=== PATIENT | male | born 1935 | race Caucasian/White ===

== ENCOUNTER 2016-12-02 17:59 | Inpatient (IN) | payer MEDICARE, OTHER ==
[~2016-12-02] VITALS: Ht 177.8 cm; Wt 101.0 kg
--- NOTE | ~2016-12-02 | ECH ---
Transthoracic Echocardiography Report (TTE) Demographics Patient Name VICTOR MANUEL KAISER Date of Study 12/03/2016 Patient Number [id number] Visit Number [id number] Date of 1935 Room Number 306 Accession Number [id number] Gender Male Age 81 year(s) Referring Wm Adorno Developer Support Engineer Tatiana Peralta [facility] Physician Physician Interpreting [address] Light Repairer Helper Physician MD Supervising Ordering Physician Wm Adorno MD, MD/P Nurse Stress Back Hoe Machine Operator Conclusions Summary Technically adequate exam. The estimated left ventricular ejection fraction is 65%. Mild assymetric septal left ventricular hypertrophy. Diastolic assessment reveals Grade I diastolic dysfunction. The interatrial septum appears aneurysmal. Informed consent was obtained, bubble study was done, there is no evidence for a PFO or ASD. There is mild aortic regurgitation by color Doppler. Trivial tricuspid regurgitation by color Doppler. There is mild pulmonary hypertension. The pulmonary pressure (RVSP) is 35 mmHg. Procedure Type of Study TTE procedure:Echo Complete SF. Procedure Date Date: 12/03/2016 Start: 02:01 PM Technical Quality: Adequate visualization Indications:CVA and Hypertension. Appropriate Use Criteria: 9 Height: 70 inches Weight: 198 pounds BSA: 2.08 m Rhythm: Irregular HR: 77 bpm BP: 114/67 mmHg M-Mode/2D Measurements LV Diastolic Dimension: 4.52 cm LV Systolic Dimension: 3.37 cm LV Septum Diastolic: 1.15 cm LV PW Diastolic: 0.8 cm AO Root Dimension: 3.35 cm Cardiac Output: 8.7 l/min LA Dimension: 3.7 cm Cardiac Index: 4.18 l/min*m RV Diastolic Dimension: 3.14 cm LA volume index: 28 ml/m LVOT: 2.23 cm LVOT VTI: 28.96 cm RV Base: 2.6 cm LV Stroke volume: 113.05 ml RV Mid: 1.8 cm LV Stroke volume index: 54.35 ml/m TAPSE: 2.5 cm TDI-S': 15 cm/s Doppler Measurements AV Peak Velocity: 1.6 m/s MV Peak E-Wave: 0.65 m/s AV Peak Gradient: 10.24 mmHg MV Peak A-Wave: 0.73 m/s AV Mean Gradient: 5.6 mmHg MV E/A Ratio: 0.9 LVOT Peak Velocity: 1.44 m/s MV P1/2t: 93.1 msec AV Area (Continuity):4.02 cm AV P1/2t: 586.6 msec MV Deceleration Time: 294.2 msec TR Velocity:2.85 m/s MV Area (PHT): 2.36 cm TR Gradient:32.49 mmHg PV Peak Velocity: 0.96 m/s Estimated RAP:3 mmHg PV Peak Gradient: 3.67 mmHg Estimated RVSP: 35 mmHg Estimated PASP: 35.49 mmHg E' Septal Velocity: 0.06 m/s A' Septal Velocity: 0.12 m/s E' Lateral Velocity: 0.1 m/s A' Lateral Velocity: 0.14 m/s RA Area: 16.57 cm Findings Left Ventricle The left ventricle is normal in size . Mild assymetric septal left ventricular hypertrophy. Diastolic assessment reveals Grade I diastolic dysfunction. Right Ventricle Normal right ventricle structure and function. Left Atrium Normal left atrial size. The interatrial septum appears aneurysmal. Informed consent was obtained, bubble study was done, there is no evidence for a PFO or ASD. Right Atrium Normal right atrial size. Mitral Valve Normal mitral valve structure and function. Trivial mitral regurgitation by color Doppler. Aortic Valve Normal aortic valve structure and function. There is mild aortic regurgitation by color Doppler. Tricuspid Valve Normal tricuspid valve structure and function. Trivial tricuspid regurgitation by color Doppler. There is mild pulmonary hypertension. The pulmonary pressure (RVSP) is 35 mmHg. Pulmonic Valve Normal pulmonic valve structure and function. Mild pulmonic valve regurgitation by color Doppler. Pericardial Effusion No evidence of pericardial effusion. Miscellaneous Visualized portions of the aortic root and ascending aorta appear normal in size. Pleural Effusion No evidence of pleural effusion. Contractility Score LV regional wall motion:(0-Non visualized 1-Normal 2-Hypokinesis 3-Akinesis 4-Dyskinesis 5-Aneurysm) Signature
--- NOTE | ~2016-12-02 | WND ---
ADMIT: 12/02/2016 RM/LOC: 306 [facility] MR#: [id number] [address] [address] VICTOR MANUEL KAISER [address] [place] [address] [facility] SEX: M AGE: 81 : 1935 DATE OF VISIT: 12/03/2016 TIME IN: 1325 hours. TIME OUT: 1340 hours. REASON FOR VISIT: Evaluation and treatment of skin concerns. Request for Wound Care from Dr. Burk. HISTORY OF PRESENT ILLNESS: This is an 81-year-old male, admitted to [facility] on 12/02/2016. According to past records, he was actually seen in the emergency room on 11/29/2016 with a diagnosis of paraesthesia of the foot. At that time, the CT of the head was negative for any acute abnormalities. He returned to the emergency room on 12/02/2016 after he was found on the floor with right-sided weakness and unable to speak. A repeat CT showed a large ischemic stroke in the left temporoparietal region. EKG showed nonspecific ST changes. Chest x-ray questionable for left lower lobe infiltrate. Therefore, he was admitted for further evaluation and care. He was diagnosed with cerebrovascular accident of unknown duration and possible pneumonia. Upon admission, it was noted to his skin that he had several abrasions. Wound Care was requested to evaluate and treat. PAST MEDICAL HISTORY: According to old records, hypertension. Paresthesia of right leg. ALLERGIES: Penicillin. CURRENT MEDICATIONS: Per the MAR. Please see the MAR for further details. 1. Aspirin. 2. Lopressor. 3. DuoNeb. 4. Lovenox. 5. Rocephin. 6. Zithromax. PRN medications: 1. Tylenol. 2. Tylenol suppository. 3. Nitrostat. 4. Normal saline. SOCIAL HISTORY: He is retired. He previously lived at home on his own. He was able to do all his ADL's, ambulated without a walker. He does have a daughter who lives in [place] and son in [place]. FAMILY HISTORY: Significant for stroke. REVIEW OF SYSTEMS: Unable to obtain because of his receptive and expressive aphasia. No family available at the bedside. ADMIT: 12/02/2016 RM/LOC: 306 [facility] MR#: [id number] [address] [address] [place] [address] Wound Care Clinic SEX: M AGE: 81 : 1935 PHYSICAL EXAMINATION: Focused exam; body wide skin exam was done. On the top of his head, there is an abrasion that measures 5 cm x 2 cm, depth of 0.1 cm. It is slightly pink in nature. No periwound bruising or discoloration noted. No drainage noted. On his left knee posteriorly in the crease is a lesion that measures 5 cm x 3 cm that is superficial to the skin surface. It is salmon-colored, slightly flaky at the edges. No drainage noted. No discoloration noted. On the right knee, there is a small red abrasion that is 0.7 x 0.7 cm. It has no drainage noted. No discoloration or bruising noted. On the right hip are two abrasions that appear to be half circles and each other. Each measures 4 cm x 2 cm. They have a depth of 0.1 cm with red moist wound base. There is serous drainage noted. No surrounding induration felt. No surrounding bruising noted. ASSESSMENT: 1. Abrasion to top of head, right hip, and right knee. 2. Rash to posterior left knee. TREATMENT PLAN: Recommended that the abrasion on his head be washed daily with warm soapy water, rinsed, and patted dry. This can be left open to air. To the right hip area, this should be cleansed daily with either normal saline or warm soapy water, rinsed, and patted dry. Aquacel to the base covered with 4 x 4 and Medipore tape. I did use No Sting Barrier wipe around the wound prior to the dressing. Recommend this be changed daily. As far as the small abrasion on the right knee and the rash behind his left knee, at this point in time, we will leave them open to air. On examining his body, no other open areas nor any discolorations were noted. Thank you for allowing us to participate in the care of this gentleman. Elizabeth Barboza APRN/ lane JOB #: [id number] CC: Fede Burk, Attending Physician Fede Burk, Family Physician
--- NOTE | ~2016-12-02 | HP ---
ADMIT: 12/02/2016 RM/LOC: 306 [facility] MR#: [id number] [address] [address] VICTOR MANUEL KAISER [address] [address] History and Physical SEX: M AGE: 81 : 1935 DATE OF SERVICE: CHIEF COMPLAINT/HISTORY OF PRESENT ILLNESS: This 81-year-old male presented to the emergency room being brought in from home having been found by his daughter. The patient was aphasic and was unable to move his right arm, a right-sided gaze, and neglect. He had been seen a few days earlier with right leg paresthesia and had a negative CAT scan at that time, had been on aspirin, and he had been taking his antihypertensive medication. There was no previous history of stroke, myocardial infarction, chest pain, syncope, or edema. PREVIOUS MEDICAL HISTORY: Hypertension and paresthesia of the right leg. Remote history of smoking and penicillin allergy. SOCIAL HISTORY: The patient lives at home. He does not smoke or drink alcohol. FAMILY HISTORY: Includes stroke. REVIEW OF SYSTEMS: HEENT: There has been no headaches or syncopal episodes. CARDIORESPIRATORY: Remote history of smoking and also hypertension, but no myocardial infarctions, syncope, or edema. No history of stroke or atrial fibrillation. GASTROINTESTINAL: No nausea, vomiting, bloody stools, or diarrhea. : No hematuria or dysuria. METABOLIC/ENDOCRINE: No history of diabetes, thyroid disease, or hypercholesterolemia. MUSCULOSKELETAL: No history of systemic arthritis. SURGICAL HISTORY: Includes appendectomy. MEDICATIONS: Include: 1. Lopressor 50 mg b.i.d. 2. Amlodipine 10 mg daily. 3. He also had been on aspirin 81 mg daily. PHYSICAL EXAMINATION: VITAL SIGNS: Blood pressure initially was 137/66, respirations 12, pulse 82 and regular. GENERAL: The patient is aphasic. He was not moving his right side. HEENT: He did have rightward gaze. Pupils were equal. NECK: No bruits are heard. Thyroid is not enlarged. Neck veins not distended. ADMIT: 12/02/2016 RM/LOC: 306 [facility] MR#: [id number] [address] [address] [place] [address] History and Physical SEX: M AGE: 81 : 1935 CHEST: Usual except for few scattered rales. No wheezes are heard. HEART: Usual. ABDOMEN: Usual. GENITALIA: Normal. EXTREMITIES: The patient does not move his right arm or right leg. There is no edema. ASSESSMENT: 1. Acute CVA. 2. Hypertension. 3. Penicillin allergy. 4. Atelectasis. Fede Burk MD/ lane JOB #: [id number] CC: Fede Burk, Attending Physician Fede Burk, Family Physician
--- NOTE | 2016-12-03 14:17 | CO ---
ADMIT: 12/02/2016 RM/LOC: 306 [facility] MR#: [id number] [address] [address] VICTOR MANUEL BARNES [address] [place] [address] Consultation SEX: M AGE: 81 : 1935 DATE OF CONSULTATION: 12/03/2016 ATTENDING PHYSICIAN: Fede Burk CONSULTING PHYSICIAN: Nia Jara APRN TIME IN: 0825 hours. TIME OUT: 0905 hours. REASON FOR CONSULTATION: Supportive care consultation was requested by Dr. Johnson for discussion of goals for care. HISTORY OF PRESENT ILLNESS: Mr. Barnes is an 81-year-old male with a history of hypertension. He was admitted overnight after being found on the floor with right-sided weakness. CT of the head revealed an acute left MCA CVA. It is of note that he was here on November 29 with paresthesia of the foot, however, at that time, the CT of the head was negative for any acute abnormalities. At this point, he is aphasic with right-sided paralysis. Speech Therapy is to see the patient today. Due to his complexities, supportive care consultation was requested to discuss goals. In terms of advanced directives, the patient does not have any advanced directives that he has completed per family at least that they are aware of. In terms of medical decision making, the patient's daughter, Bettye Fried whose phone #[phone] is the patient's next of kin medical decision maker. He does have a son named Scott Barnes whose phone #[phone] who is involved with his care as well. He has a full code status at the initial time of my interview. Symptomatically, the patient appears fairly comfortable. He does have significant aphasia. He is fatigued and weak. PAST MEDICAL HISTORY: Hypertension and appendectomy. ALLERGIES: THE PATIENT IS ALLERGIC TO PENICILLIN. CURRENT MEDICATIONS: Please see the patient's MAR for specific routes and dosages. His current medications are as follows. 1. Rocephin. 2. Zithromax. 3. Tylenol. 4. Nitrostat. SOCIAL HISTORY: The patient was living alone. He does chew tobacco. He does not use alcohol or illicit drugs. He is retired. He is Sikh. FAMILY HISTORY: Reviewed per chart and noncontributory. ADMIT: 12/02/2016 RM/LOC: 306 [facility] MR#: [id number] [address] [address] [place] [address] Consultation SEX: M AGE: 81 : 1935 FUNCTIONAL REVIEW: Prior to his hospital stay, he was living at home independently. He could ambulate without a walker. He could dress himself and perform all ADLs. His level of consciousness was full. His palliative performance scale prior to admission was around 80% to 90%. Currently, he is in bed. He is total care. He has a right-sided paralysis. He is not taking in any oral intake. He is drowsy. His current palliative performance scale is 15% to 20%. REVIEW OF SYSTEMS: A 10-point review of systems was attempted. Due to the patient's mentation, this was unable to be obtained. PHYSICAL EXAMINATION: GENERAL: The patient is examined in the bed. He is in no acute distress. VITAL SIGNS: Temperature 100.3, pulse 82, respirations 16, blood pressure 149/78, and oxygen 92% on room air. HEENT: Head is normocephalic. Pupils are 3 mm bilaterally. They are brisk. Oral mucosa pink and dry with fair dentition. NECK: Supple. Trachea midline. RESPIRATORY: Respirations are equal and nonlabored at rest. LUNGS: Slightly coarse over the right lung field. CARDIOVASCULAR: Rate and rhythm regular without murmurs, rubs, or gallops. No edema noted. GASTROINTESTINAL: Soft, nontender. Bowel sounds are positive. MUSCULOSKELETAL: Generalized weakness. He does have a right-sided paralysis as mentioned. No obvious joint deformities. INTEGUMENTARY: Skin turgor is fair. NEUROLOGIC: He will open eyes and follow commands with his left side. He makes eye contact with me. PSYCHIATRIC: Calm. Cooperative. No agitation noted. DIAGNOSTIC DATA: Sodium 143, potassium 4.2, BUN 20, creatinine 0.9, total protein 6.7, and albumin 3.4. WBC 12.0, hemoglobin 13.4, hematocrit 39.4, and platelets are 226. Chest x-ray showing right lung base atelectasis. IMPRESSION: 1. Physical debility. 2. Aphasia. 3. Right hemiparesis. 4. Malaise. 5. Fatigue. 6. Left middle cerebral artery cerebrovascular accident. 7. Pneumonia. 8. Palliative care. 9. The patient is a full code, however, transitions to a do not resuscitate/do not intubate status during my discussion with family. PLAN OF TREATMENT: 1. Obviously the patient is unable to participate in medical decision making ADMIT: 12/02/2016 RM/LOC: 306 [facility] MR#: [id number] [address] [place] [id number] [place] [address] Consultation SEX: M AGE: 81 : 1935 at this time due to his mentation. I was able to meet with the patient's son and daughter at the bedside. I introduced myself and role. We briefly reviewed the patient's status and they are obviously and understandably very sad regarding their father's condition. Much support was given. We did review goals and at that time, the goal was to continue current care to see how the patient does in the time ahead. They do look to Dr. Burk for guidance on status and prognosis in the time ahead. They are agreeable to ongoing discussions with supportive care regarding goals pending the patient's status in the days ahead. 2. We did review code status including the benefit versus burden of a full code versus a do not resuscitate/do not intubate status. Both the patient's son and daughter agree to a do not resuscitate/do not intubate order. 3. We will continue to follow along and assist with goals pending the patient's status per Dr. Burk' direction. We would like to thank Dr. Johnson for the invitation to participate in this patient's care. Total consultation time was 40 minutes from 0825 hours to 0905 hours with 15 minutes from 0835 to 0850 spent [id number] with the patient's family discussing goals for care and providing counseling and support. The plan of care was discussed with nursing who verbalizes understanding. We will continue to follow along. Nia Jara APRN/ lane JOB #: [id number] CC: Fede Burk, Attending Physician Fede Burk, Family Physician
--- NOTE | 2016-12-06 09:16 | CO ---
ADMIT: 12/02/2016 RM/LOC: 401 [facility] MR#: [id number] [address] [address] VICTOR MANUEL KAISER [address] [place] [address] Consultation SEX: M AGE: 81 : 1935 DATE OF CONSULTATION: 12/04/2016 ATTENDING PHYSICIAN: Fede Burk CONSULTING PHYSICIAN: Erick Kingsley MD REASON FOR CONSULTATION: Stroke and carotid occlusion. HISTORY OF PRESENT ILLNESS: Mr. Kaiser is a very pleasant gentleman, who was last seen by his daughter on Friday, presented Friday with MCA infarct. Ultrasounds and CT scans were obtained, and we are subsequently consulted today. PAST MEDICAL HISTORY: 1. Hypertension. 2. Appendectomy. MEDICATIONS: 1. Full-strength aspirin. 2. Lopressor. 3. Lovenox. 4. DuoNeb. 5. Rocephin. 6. Zithromax. 7. Tylenol. 8. Nitrostat. Home medications: 1. Amlodipine. 2. Metoprolol. ALLERGIES: PENICILLINS. SOCIAL HISTORY: Lives alone at home. He utilizes some tobacco. No alcohol or illicit drugs. FAMILY HISTORY: No neurosurgical disease in the family. REVIEW OF SYSTEMS: Not really obtainable with the patient's neurological status. PHYSICAL EXAMINATION: VITAL SIGNS: 97.7, 71 beats, 16 respirations, 144/41, 97% on room air. GENERAL: He is an otherwise healthy-appearing 81-year-old gentleman. HEENT: Atraumatic head. No scleral icterus. Clear oropharynx. CHEST: Normal respiratory excursion. ABDOMEN: Nontender. NEUROLOGICAL EXAMINATION: MENTAL STATUS: He awakens readily. He has dysphonia and aphasia, although his dysphonia is profound enough that ADMIT: 12/02/2016 RM/LOC: 401 [facility] MR#: [id number] [address] [address] VICTOR MANUEL KAISER [address] [place] [id number] Consultation SEX: M AGE: 81 : 1935 difficulty really evaluating the type of aphasia. CRANIAL NERVES: Cranial nerves II through XII are individually tested. He has a left-sided gaze preference and right-sided facial droop. MOTOR: Motor exam reveals 0/5 strength in the right hemibody, 5/5 on the left. He does follow commands appropriately with simple commands, but not complex commands. CEREBELLAR: Not testable. GAIT: Not testable. DEEP TENDON REFLEXES: Is 0/4 on the right side and 2/4 on the left side. SENSATION: Appears to be intact to light touch on the left, difficult to assess on the right. ASSESSMENT AND PLAN: Mr. 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 He is probably going to need a carotid endarterectomy I could consider performing for them at some point here in the upcoming future, I would not consider that emergently. At this point, he is 2-3 days out, so I suspect he will not end up with florid MCA edema progressing to . The volume of the infarct looks smaller than what would be expected for that in relation to the CT scan. I am going to order an MRI and MRA. I discussed with his daughter the likelihood of temporary if not permanent gastrostomy tube placement. The patient's blood pressure is mildly elevated, that is a good thing, I would not aggressively correct his hypertension unless it got above 180 or 185 because he may be flow dependent on that insufficient right-sided carotid artery. We may get a little bit better information from the MRA. I will plan to follow along while he is in the hospital here. Hopefully, he will be a good rehab candidate. Erick Kingsley MD/ lane JOB #: [id number] CC: Fede Burk, Attending Physician Fede Burk, Family Physician
--- NOTE | 2016-12-07 21:37 | ER ---
ADMIT: 12/02/2016 RM/LOC: 306 [facility] MR#: [id number] [address] [address] VICTOR MANUEL KAISER [address] [place] [address] Emergency Room Report SEX: M AGE: 81 : 1935 DATE: 12/02/2016 HISTORY OF PRESENT ILLNESS: An 81-year-old gentleman who was brought in the emergency department as his daughter found him down in his home. She had last talked to him by yesterday around 2:00. She is unable to get him on the phone, so she went over and found him down in the house. The patient himself is unable to talk currently; therefore, unable to provide review of systems. PAST MEDICAL HISTORY: Hypertension. It appears he was in the emergency department this past Friday with paresthesia of the right leg. He is normally alert and oriented x4 and walks without assistance. SOCIAL HISTORY: Does not smoke or drink. PHYSICAL EXAMINATION: GENERAL: Reveals an 81-year-old gentleman with an obvious right-sided hemiplegia and right-sided gaze and neglect. He was nonverbal. HEENT: Head is atraumatic. He is alert, in moderate amount of distress. He has an expressive aphasia. LUNGS: Diminished sounds on the left. CARDIOVASCULAR: Regular rate and rhythm. No murmurs, rubs, or gallops. CRANIAL NERVES: Significant for right gaze neglect, unable to test cerebellar function as he would not follow commands with either right or left. He has an obvious right hemiplegia, upgoing toe on the right. He is attempting to speak, but cannot form sentences. ABDOMEN: Soft, nontender. LABORATORY AND IMAGING DATA: Emergent CT of the head shows a large ischemic stroke in the left temporoparietal region. His EKG shows nonspecific ST changes. Chest x-ray shows a questionable left lower lobe infiltrate. His white count is 14.7, his glucose 134, chloride 112. Cardiac markers are within normal parameters. ASSESSMENT AND PLAN: The patient is being admitted with cerebrovascular accident of unknown duration and possible pneumonia. He is being covered with Rocephin in the emergency department, subsequently admitted to the ICU. Giacomo Wooten MD/ lane JOB #: [id number] CC: Fede Burk MD, Attending Physician Fede Burk MD, Family Physician
--- NOTE | 2016-12-11 11:37 | DS ---
ADMIT: 12/02/2016 RM/LOC: 401 [facility] MR#: [id number] [address] [address] [facility] [address] [address] Discharge Summary SEX: M AGE: 81 : 1935 ADMISSION DATE: 12/02/2016 DISCHARGE DATE: 12/09/2016 HISTORY AND PHYSICAL: Please see the chart. LABORATORY AND X-RAY DATA: Please see the chart. CLINICAL COURSE: This 81-year-old male was admitted with an acute CVA. The patient was found at home unable to use his right arm. He was aphasic, had right-sided gaze, and the CT scan was consistent with an acute left CVA with right hemiparesis. A chest x-ray was consistent with atelectasis and/or pneumonia, and the patient was placed on intravenous antibiotics. Initially he was placed on Lovenox, but this was discontinued by the neurosurgeons. The patient's aspirin was increased to 325 mg orally daily. His blood pressure medications were given. He had some rales in his lungs, and there was some difficulty with swallowing. Speech therapy saw him and recommended a PEG tube, which was inserted by Dr. Newell. He tolerated this well. His temperature was normal. He did become a little more responsive, but Lexapro was started and he became a little more lethargic. The plan is to send the patient to intensive rehabilitation, to discontinue his Rocephin, to give him oral Levaquin for 3 more days and then discontinue. The blood pressure medications will also be continued as well as tube feedings. FINAL DIAGNOSIS: 1. 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 2. Atelectasis. 3. Hypertension. 4. Penicillin allergy. 5. Dysphagia. DISCHARGE MEDICATION: 1. Aspirin 325 mg daily. 2. Lopressor 50 mg b.i.d. 3. Norvasc 10 mg daily. 4. He will be given EzPAP q.i.d. 5. He will be given oral Zithromax 250 mg once daily for 3 more days. 6. PEG tube feedings will continue. He will be seen in the office in 3 weeks. Fede Burk MD/ fox JOB #: [id number] CC: Fede Burk MD, Attending Physician Fede Burk MD, Family Physician
--- NOTE | 2016-12-17 13:26 | CO ---
ADMIT: 12/02/2016 RM/LOC: 401 [facility] MR#: [id number] [address] [place] [address] [facility] [address] [place] [address] Consultation SEX: M AGE: 81 : 1935 DATE OF CONSULTATION: 12/06/2016 ATTENDING PHYSICIAN: Fede Burk CONSULTING PHYSICIAN: Stephen Newell MD REASON FOR CONSULTATION: Possible PEG tube placement. HISTORY OF PRESENT ILLNESS: This patient is a very pleasant and an unfortunate 81-year-old male, who came into the ER after being found by family on the floor with significant stroke, right-sided weakness. CT scan shows an acute left MCA cerebrovascular accident. At this point, he is aphasic, right- sided paralysis. He seems to be trying to regain, trying to talk a little bit per family, but unable to maintain any adequate oral intake. I have visited with family and they have decided they wanted to proceed with a PEG tube for feedings. I have discussed that with them, what it entails, the risks, the benefits, possible complications, and alternatives; they understand and wished to proceed. PAST SURGICAL HISTORY: Appendectomy. PAST MEDICAL HISTORY: He has a history of hypertension. MEDICATIONS: He routinely is on, I believe: 1. Aspirin. 2. Amlodipine. 3. Metoprolol. He had been started on some antibiotics: 1. Rocephin. 2. Zithromax, question of some pneumonia. ALLERGIES: HE HAS AN ALLERGY TO PENICILLIN. SOCIAL HISTORY: He routinely lived at home, was very active. Does use some chewing tobacco. No smoking. Denies alcohol or illicit drugs. ADMIT: 12/02/2016 RM/LOC: 401 [facility] MR#: [id number] [address] [place], [place] [address] [facility] [address] [place] [address] Consultation SEX: M AGE: 81 : 1935 FAMILY HISTORY: Otherwise, noncontributory. REVIEW OF SYSTEMS: Currently positive for unable to speak and purposeful movement of his right side. He is appears alert, aphasic. HEENT: Sclerae are nonicteric. CHEST: Clear anteriorly. HEART: Regular rate and rhythm. ABDOMEN: Soft, benign. A well-healed incision from appendectomy. No other obvious mass or lesion. Positive bowel sounds. ASSESSMENT AND PLAN: At this time, plan EGD and PEG tube that has been discussed with family, they understand and wished to proceed. Stephen Newell MD/ lane JOB #: [id number] CC: Fede Burk, Attending Physician Fede Burk, Family Physician
--- NOTE | 2016-12-17 13:26 | OR ---
ADMIT: 12/02/2016 RM/LOC: 401 [facility] MR#: [id number] [address] [address] [facility] [address] [place] [address] Operative/Delivery Room Report SEX: M AGE: 81 : 1935 SURGERY DATE: 12/06/2016 SURGEON: Stephen Newell MD PREOPERATIVE DIAGNOSIS: Stroke, need for feeding tube for oral intake medicine. POSTOPERATIVE DIAGNOSIS: Stroke, need for feeding tube for oral intake medicine. PROCEDURE: EGD and PEG tube placement. ANESTHESIA: MAC anesthesia. ESTIMATED BLOOD LOSS: 5 mL or less. INDICATION FOR PROCEDURE: Please see H and P. DESCRIPTION OF PROCEDURE: After the risks, benefits, possible complications, and the alternatives had been explained, and informed consent had been obtained, the patient was taken back to the procedure room, underwent sedation. The flexible EGD scope was introduced, and you can see in picture 4, he has a good sized hiatal hernia and so it made this little difficult once you got down and got in and turned off the lights just to transilluminate the only real good spot. The transilluminated was right around the midline in xiphoid area. I finally felt I was able to palpate and indent an area there, so I went ahead and sterilely prepped it with some local anesthetic. Small incision was made and then the needle was introduced percutaneously into the stomach and actually got the guidewire in, and while I was getting the snare down there, he ended up coughing a couple of times and actually pulled out of the stomach, my actual wire and the sheath, so I had to redo it, again got into the stomach with 1 stick there, got the guidewire to have my snare down now, so I grabbed my guidewire with the snare and brought it out through the mouth, then we had good access. The PEG tube was threaded over top of the guidewire, percutaneously brought up through the anterior abdominal wall up into position. It was cut, fastener was placed, cap was placed. I reintroduced the scope and you can see the pictures of the flange in picture #2 and 3. The scope was then removed, and the procedure terminated. He tolerated it well, was taken to recovery room in stable and satisfactory condition. Stephen Newell MD/ lane JOB #: [id number] CC: Fede Burk, Attending Physician Fede Burk, Family Physician ADMIT: 12/02/2016 RM/LOC: 401 [facility] MR#: [id number] [facility] [place] [id number] [place] [address] Operative/Delivery Room Report SEX: M AGE: 81 : 1935 Fede uBrk MD
[2016-12-28] MEDS ORDERED: SANTYL15 GM TP (17:52)
[2016-12-28] MEDS ORDERED: TINACTIN 1% PWD45 GM TP (17:52)
[2016-12-28] MEDS ORDERED: MYCOSTATIN PWD15 GM TP (17:52)
[2016-12-28] MEDS ORDERED: DUONEB DPS3 ML IH (17:53)
== END 2016-12-09 14:25 | disposition short-term general hospital (02) | DRG 64 ==
LOC: ER 17:59 → 4PCU 19:15 → 3ICU 19:15 → 4PCU 12-04 16:39
PROC: 0DJ08ZZ Inspection of Upper Intestinal Tract, Via Natural or Artificial Opening Endoscopic (ICD-10-PCS; principal; 2016-12-06)
PROC: 0DH63UZ Insertion of Feeding Device into Stomach, Percutaneous Approach (ICD-10-PCS; principal; 2016-12-06)
DX: I63.231 Cerebral infarction due to unspecified occlusion or stenosis of right carotid arteries (principal); J18.9 Pneumonia, unspecified organism; G81.91 Hemiplegia, unspecified affecting right dominant side; R13.10 Dysphagia, unspecified; R47.01 Aphasia; I10 Essential (primary) hypertension; F17.220 Nicotine dependence, chewing tobacco, uncomplicated; Z79.82 Long term (current) use of aspirin; Z66 Do not resuscitate

== ENCOUNTER 2016-12-09 12:39 | Inpatient (IN) | payer MEDICARE, OTHER ==
[~2016-12-09] VITALS: Ht 177.8 cm; Wt 89.0 kg
--- NOTE | ~2016-12-09 | WND ---
ADMIT: 12/09/2016 RM/LOC: 606 [facility] MR#: [id number] [address] [address] [facility] [address] [address] W[facility] Care Clinic SEX: M AGE: 81 : 1935 DATE OF VISIT: 12/10/2016 TIME IN: 1040 hours. TIME OUT: 1050 hours. REASON FOR VISIT: Evaluation and treatment of right hip ulcerations. This is a request for wound care from Dr. Potts. HISTORY OF PRESENT ILLNESS: This is an 81-year-old male, who is admitted to the inpatient rehabilitation unit at [facility] on 12/09/2016. He was seen by Wound Care on 12/03/2016. He is a patient of Dr. Burk. He had been admitted to [facility] with aphasia and inability to move his right arm with right-sided gaze and neglect. He had a CT scan that revealed a large ischemic stroke in the left temporoparietal region. Therefore, he was admitted for further evaluation and cares. He was initially seen in the ICU by Wound Care and was diagnosed with an abrasion to the top of his head, his right hip, and his right knee. Wound Care is following up today at the inpatient rehabilitation unit. PAST MEDICAL HISTORY: Hypertension. Paresthesia of the right leg. EGD and PEG tube placement. The PEG tube was accidentally pulled out by the patient on 12/09/2016. ALLERGIES: Penicillin which causes anaphylaxis. CURRENT MEDICATIONS: Per the OCT. 1. Zithromax. 2. DuoNeb. 3. Lovenox. 4. Tinactin. 5. Vasotec. 6. Zithromax. PRN medications: 1. Senokot. 2. DuoNeb. 3. Colace. 4. Tylenol. 5. Dulcolax. 6. Sportscreme. 7. Tinactin. SOCIAL HISTORY: He is retired. Previously, he lived in his home alone. He, prior to admission, was able to do his ADLs and ambulated without a walker. FAMILY HISTORY: Significant for stroke. REVIEW OF SYSTEMS: Unable to obtain because of his receptive and expressive aphasia. No family members available in the room. ADMIT: 12/09/2016 RM/LOC: 606 [facility] MR#: [id number] [address] [address] [place] [address] W[facility] Care Clinic SEX: M AGE: 81 : 1935 PHYSICAL EXAMINATION: VITAL SIGNS: Temperature 99, pulse 65, respirations 20, blood pressure 153/79, O2 sats on room air is 93%. Focused exam to his abdomen shows a small 4 x 4 without any drainage in the area of his previous PEG tube site. Focused exam to the top of his head shows a thin crust that measured 3 x 0.7 cm. This was lifting, and when removed, new epithelium was noted. No surrounding erythema or induration. To his right knee, he previously had a small crust that was also measuring 0.4 cm x 0.4 cm. This was lifted showing new epithelium beneath with no surrounding erythema or induration. To his posterior knee and posterior Achilles area is hyperpigmentation, but no open areas noted. To his right hip on the proximal area is 2.5 x 2.2 superficial skin surface red dry wound base, and distally, 2 cm x 1.2 cm superficial skin surface red dry wound base. No surrounding erythema or induration. No discomfort with palpation. No discoloration noted. ASSESSMENT: 1. Healed abrasion to top of head and anterior right knee. 2. Abrasion to right hip. TREATMENT PLAN: Requested a low air loss mattress to his bed. Chair air cushion if he is up. We will discontinue the Aquacel to his right hip and place a Mepilex border. This should be changed twice weekly and as needed. Requested frequent position changes every 2 hours. Requested that he not be placed on his right hip. Thank you for this referral and Wound will follow while he is inpatient. Elizabeth Barboza APRN/ lane JOB #: [id number] CC: Antonio Potts, Attending Physician Fede Burk, Family Physician
--- NOTE | 2016-12-25 15:10 | DS ---
ADMIT: 12/09/2016 RM/LOC: 606 [facility] MR#: [id number] [address] [address] [facility] [address] [place] [address] General Discharge Summary SEX: M AGE: 81 : 1935 ADMISSION DATE: 12/09/2016 DISCHARGE DATE: 12/17/2016 DISCHARGE DIAGNOSIS: Stroke 01.2, right body involvement, left brain, I63.512, cerebral infarction date unspecified occlusion or stenosis of the left middle cerebral artery, onset 12/02/2016. Comorbid conditions, per initial H and P. Other diagnoses per hospital course below. HOSPITAL COURSE: Please see my initial H and P for details prior to transfer to the IRU. DNR DNI decision on admission. On 12/09/2016, pain and bowel regimen were adjusted. Lab was monitored regularly. Bilateral lower extremity venous ultrasound due to swelling and concern for DVT that was negative. Tinactin was started for the groin rash. DuoNeb was adjusted for respiratory status. EzPAP for atelectasis. Medications were changed through the G tube due to dysphagia. PEG tube in place. Lovenox was started, 1st dose now every 24 hours for DVT prophylaxis. EdemaWear for edema. SCDs for DVT prophylaxis. The patient pulled out the PEG tube on the night of admission. IR and Surgery were notified. Wound Care saw the patient on 12/10/2016. IV fluids were given until the G-tube could be replaced by Surgery at the end of the week after admission. Chest x-ray and ABGs obtained per Dr. Burk. Aspirin was adjusted for G tube, held until replaced. DuoNeb, adjusted, EzPAP adjusted. Zithromax changed IV for treating the pneumonia until G-tube re-established. Lopressor and Norvasc just held. He was not that hypertensive and Neurosurgery wanted little bit higher pressures to help perfuse his brain. ABG ordered by Dr. Burk. Dietitian followed to optimize nutrition. Pharmacy followed to optimize medication management. CTA of the chest was done for recent fever and hypoxemia. Chest x-ray with no infiltrate and was not on anticoagulation. Concern for PE, that was negative for PE. Peripheral for right foot done to prevent contracture, bed sores. Zithromax discontinued 12/12/2016, received a full course of that. Lovenox held for G-tube replacement. After the G-tube was replaced, we went back to the tube feeding. DuoNeb and EzPAP adjusted, encouraged. Incentive spirometry for atelectasis. Hydralazine done p.r.n. systolic blood pressure greater than 170. Blood pressure and heart rate q.i.d. Vitamin D deficiency, replaced. Ritalin was started for cognition and post stroke depression. ADMIT: 12/09/2016 RM/LOC: 606 [facility] MR#: [id number] [address] [place] [phone] [place] [address] General Discharge Summary SEX: M AGE: 81 : 1935 Dietitian helped with tube feeding recommendations. Ritalin increased for above reasons. Bowel regimen adjusted. Mucinex done for helping clear secretions and cough. Lovenox restarted for DVT prophylaxis. Heat rash was treated with cleaning the skin and leaving open to air. Binder put on to help prevent removing the G tube. The patient had decline on 12/17/2016, the patient was transferred to [facility] in guarded condition. Please see IRU interdisciplinary discharge summary for details regarding progress in therapy and did not make much progress due to the short-stay and decline. DISCHARGE MEDICATIONS: Please see discharge med rec. FOLLOWUP: To be determined. Antonio Potts MD/ lane JOB #: [id number] CC:
[2016-12-28] MEDS ORDERED: MYCOSTATIN PWD15 GM TP (17:52)
[2016-12-28] MEDS ORDERED: SANTYL15 GM TP (17:52)
[2016-12-28] MEDS ORDERED: TINACTIN 1% PWD45 GM TP (17:52)
[2016-12-28] MEDS ORDERED: DUONEB DPS3 ML IH (17:53)
--- NOTE | 2017-01-22 09:10 | OR ---
ADMIT: 12/09/2016 RM/LOC: 606 [facility] MR#: [id number] [id number] [place], [place] [address] VICTOR MANUEL KAIESR [address] [place] [address] Operative/Delivery Room Report SEX: M AGE: 81 : 1935 Corrected: 12/14/2016 0743 njv Correction: 01/15/20174 vdg SURGERY DATE: 12/13/2016 SURGEON: Tyler Sosa MD PREOPERATIVE DIAGNOSES: Dysphagia and malnutrition. POSTOPERATIVE DIAGNOSES: Dysphagia and malnutrition. PROCEDURE: Esophagogastroduodenoscopy with 20-Spanish pull percutaneous endoscopic gastrostomy tube insertion. MICROBIOLOGICAL LABORATORY TECHNICIAN: Stephen Newell MD, whose assistance was necessary because of the large hiatal hernia, dfficulty with endoscopic visualization and the need for him to access the stomach and perform the gastrostomy tube while I was performing endoscopic portion of the procedure. ANESTHESIA: IV general. DESCRIPTION: The patient was taken to the endoscopy suite and placed supine on his hospital cart. A bite block was placed and IV sedation was established. The upper endoscope was advanced through the oropharynx into the esophagus without difficulty. The scope was pushed under visualization of the stomach. Air was used to insufflate the stomach. Upon doing so, the place of prior gastrostomy tube which had been pulled earlier this week was identified. This was in the mid body of the stomach. Attempts at one-to-one finger indentation were performed at this site for localization to the anterior abdominal wall, however, this was marginal at best for identifying that. It did appear that one-to-one finger indentation was more visualized just distal on the gastric body. This area was anesthetized with local anesthetic. The stomach was then cannulated under endoscopic visualization with the large gauge Angiocath. This was, however, right at the very tip of the Angiocath. There was no physical exam evidence for bowel in the space between these two areas, but more that the stomach was retracted superiorly because of the large hiatal hernia. The wire was advanced via the Angiocath and grasped with the endoscopic snare. This was then withdrawn through the oropharynx. The 20-Spanish gastrostomy tube was advanced over the wire and then pulled through the anterior abdominal wall ADMIT: 12/09/2016 RM/LOC: 606 [facility] MR#: [id number] [address] [address] [place] [address] Operative/Delivery Room Report SEX: M AGE: 81 : 1935 to 6 cm at skin level. The plastic buttress clamp and cap were placed on the tube. The upper endoscope was advanced through the oropharynx to the stomach, which showed appropriate position of the mushroom of the catheter in the body of the stomach with no bleeding. Air was suctioned. Dressings were placed on the wound. Sponge, needle, and instrument counts were correct at the end of the case. The patient tolerated the procedure well and transferred to the recovery area in stable condition. Of note, I had initially thought I could see better one-to-one indentation just lateral to the prior gastrostomy tube site, so I had made a small 5 mm incision at this site, which was ultimately not used. This was closed with Dermabond at the completion of the case. Tyler Sosa MD/ lane JOB #: [id number] CC: Antonio Potts, Attending Physician Fede Burk, Family Physician Corrected: 12/14/2016 0743 njv Correction: 01/15/20172043 [facility]
== END 2016-12-17 10:15 | disposition short-term general hospital (02) | DRG 56 ==
LOC: 6IRU 12:39
PROVIDERS: ADMIT Physical Medicine & Rehabilitation
PROC: F06ZDZZ Swallowing Dysfunction Treatment (ICD-10-PCS; 2016-12-09)
PROC: F06Z3ZZ Aphasia Treatment (ICD-10-PCS; 2016-12-09)
PROC: F07Z9FZ Gait Training/Functional Ambulation Treatment using Assistive, Adaptive, Supportive or Protective Equipment (ICD-10-PCS; 2016-12-09)
PROC: F07Z5FZ Bed Mobility Treatment using Assistive, Adaptive, Supportive or Protective Equipment (ICD-10-PCS; 2016-12-09)
PROC: F08Z2FZ Grooming/Personal Hygiene Treatment using Assistive, Adaptive, Supportive or Protective Equipment (ICD-10-PCS; 2016-12-09)
PROC: 0DH68UZ Insertion of Feeding Device into Stomach, Via Natural or Artificial Opening Endoscopic (ICD-10-PCS; principal; 2016-12-13)
DX: I69.391 Dysphagia following cerebral infarction (principal); J18.9 Pneumonia, unspecified organism; E46 Unspecified protein-calorie malnutrition; I69.351 Hemiplegia and hemiparesis following cerebral infarction affecting right dominant side; I69.320 Aphasia following cerebral infarction; I69.398 Other sequelae of cerebral infarction; I10 Essential (primary) hypertension; D50.9 Iron deficiency anemia, unspecified; F17.220 Nicotine dependence, chewing tobacco, uncomplicated; R41.4 Neurologic neglect syndrome; J98.11 Atelectasis; Z43.1 Encounter for attention to gastrostomy; I69.319 Unspecified symptoms and signs involving cognitive functions following cerebral infarction; R13.10 Dysphagia, unspecified; R32 Unspecified urinary incontinence; L74.0 Miliaria rubra; K59.00 Constipation, unspecified; H91.93 Unspecified hearing loss, bilateral; R27.8 Other lack of coordination; R09.02 Hypoxemia; E55.9 Vitamin D deficiency, unspecified; R21 Rash and other nonspecific skin eruption; M79.89 Other specified soft tissue disorders; R26.2 Difficulty in walking, not elsewhere classified; Z68.28 Body mass index [BMI] 28.0-28.9, adult; Z66 Do not resuscitate

== ENCOUNTER 2016-12-09 23:34 | Emergency (ER) | payer MEDICARE, OTHER ==
--- NOTE | 2016-12-10 07:27 | ER ---
ADMIT: 12/09/2016 RM/LOC: ER [facility] MR#: [id number] [address] [address] [facility] [address] [place] [address] Emergency Room Report SEX: M AGE: 81 : 1935 DATE: 12/09/2016 Patient is an 81-year-old male, resident of [facility], rehabbing post left MCA stroke with aphasia, right-sided hemiparesis, had PEG tube placed by Dr. Newell on December 06. Patient accidentally pulled out the tube tonight. Referred down for replacement, but since the tract is immature, cannot be replaced tonight in ER. Notified Dr. Sosa, who agrees and requests Dr. Maxim Arnold do it tomorrow. Notified Dr. Fraire covering for Dr. Burk, who agrees. Orders were written for IR consult in the morning. Resume all other orders. Alexis Hollins MD/ lane JOB #: [id number] CC: Alexis Hollins MD, Attending Physician Fede Burk MD, Family Physician Antonio Potts MD
[2016-12-28] MEDS ORDERED: TINACTIN 1% PWD45 GM TP (17:52)
[2016-12-28] MEDS ORDERED: MYCOSTATIN PWD15 GM TP (17:52)
[2016-12-28] MEDS ORDERED: SANTYL15 GM TP (17:52)
[2016-12-28] MEDS ORDERED: DUONEB DPS3 ML IH (17:53)
== END 2016-12-10 00:10 | disposition still patient (30) ==
LOC: ER 23:34
DX: K94.23 Gastrostomy malfunction (principal); I10 Essential (primary) hypertension; Z86.73 Personal history of transient ischemic attack (TIA), and cerebral infarction without residual deficits; Z88.0 Allergy status to penicillin

== ENCOUNTER 2016-12-17 10:15 | Inpatient (IN) | payer MEDICARE, OTHER ==
[~2016-12-17] VITALS: Ht 177.8 cm; Wt 85.0 kg
--- NOTE | 2016-12-27 11:55 | HP ---
ADMIT: 12/17/2016 RM/LOC: 316 [facility] MR#: [id number] [address] [address] [facility] [address] [address] History and Physical SEX: M AGE: 81 : 1935 DATE OF SERVICE: CHIEF COMPLAINT AND HISTORY OF THE PRESENT ILLNESS: This 81-year-old male was readmitted to the hospital following an episode of apparent aspiration. The patient had been hospitalized for an acute CVA involving the right side of the brain and left hemiparesis. He had some difficulty swallowing and for this reason, a PEG tube was inserted. He had then been transferred to the intensive rehabilitation unit for further occupational and speech therapy and treatments. While there, in the middle of the night, he had evidently vomited some tube feedings and had difficulty with the PEG tube which he had taken out. IV fluids were initially given and the surgeons were consulted for help with the PEG tube. The patient was then restarted on feedings and again the patient vomited with possible aspiration. His lactic acid level was mildly elevated, and the intensivists were consulted. The tube feedings are stopped for now. The white count is higher. He has no evidence of lactic acidosis at this time, and his blood pressure is stable. He has had atelectasis on his x- ray. He also has a history of hypertension, and his antibiotics have been restarted. He has tolerated the Rocephin well. PHYSICAL EXAMINATION: VITAL SIGNS: Blood pressure is 135/74, temperature is 99.1. GENERAL: The patient will indicate yes or no on his responses. HEENT: The patient is aphasic. NECK: Neck veins not distended. Thyroid not enlarged. CHEST: Has rales and rhonchi bilaterally, but no wheezes. HEART: Tachycardia is present, but no murmur is heard. ABDOMEN: Soft, nontender. Liver is not enlarged. Spleen is not palpable. No abnormal masses are palpated. Femoral pulses are strong and equal bilaterally. GENITALIA: Normal. EXTREMITIES: The patient does have marked lack of movement in his left side. ASSESSMENT: 1. Aspiration with hypoxemia. 2. Status post cerebrovascular accident with residual hemiparesis and aphasia and dysphagia. 3. Hypertension. Fede Burk MD/ lane JOB #: [id number] CC: Fede Burk, Attending Physician Fede Burk, Family Physician
[2016-12-28] MEDS ORDERED: TINACTIN 1% PWD45 GM TP (17:52)
[2016-12-28] MEDS ORDERED: SANTYL15 GM TP (17:52)
[2016-12-28] MEDS ORDERED: MYCOSTATIN PWD15 GM TP (17:52)
[2016-12-28] MEDS ORDERED: DUONEB DPS3 ML IH (17:53)
--- NOTE | 2016-12-30 11:50 | DS ---
ADMIT: 12/17/2016 RM/LOC: 504 [facility] MR#: [id number] [address] [address] [facility] [address] [address] Discharge Summary SEX: M AGE: 81 : 1935 ADMISSION DATE: 12/17/2016 DISCHARGE DATE: 12/27/2016 HISTORY AND PHYSICAL: Please see the chart. LABORATORY AND X-RAY DATA: Please see the chart. CLINICAL COURSE: This 81-year-old male had been readmitted to the hospital. The patient's major problem has been a major stroke, which has led to dysphagia and hemiplegia. The patient had been discharged but needed to be readmitted because of aspiration pneumonia. The patient has had problems with eating and has had to have a PEG tube inserted in spite of this, and the patient has repeatedly pulled out his PEG tube. In spite of the PEG tube, the patient has aspirated. He was placed in the hospital, he was started on twin jet nebulizer treatments and antibiotics. His temperature did come down. His white count came down. At the time of discharge, he was afebrile. He also had some GI bleeding from the lower GI tract. He also had external hemorrhoids. His aspirin and Lovenox were discontinued. Again, the problem continued with difficulty with nutrition, and the family has felt comfortable with a comfort diet, realizing that recurring aspirational will probably occur. He was not actively bleeding at the time of discharge, and I will continue TJNs on a p.r.n. only basis. If he has air hunger and/or struggling, he can obtain this. Otherwise, he is placed on a comfort diet. He is to have no resuscitation. He will be followed by hospice. FINAL DIAGNOSES: 1. Aspiration pneumonia. 2. Status post CVA (cerebrovascular accident) with residual hemiplegia. 3. Protein malnutrition. 4. Aphasia. 5. Lower GI (gastrointestinal) bleeding. 6. Anemia. Fede Burk MD/ bhaskar JOB #: [id number] CC: Fede Burk MD, Attending Physician Fede Burk MD, Family Physician
--- NOTE | 2016-12-31 11:15 | CO ---
ADMIT: 12/17/2016 RM/LOC: 504 [facility] MR#: [id number] [address] [address] VICTOR MANUEL BARNES [address] [address] Consultation SEX: M AGE: 81 : 1935 DATE OF CONSULTATION: 12/25/2016 ATTENDING PHYSICIAN: Fede Burk CONSULTING PHYSICIAN: Antonio Potts MD LOCATION OF SERVICE: [facility]. REASON FOR CONSULTATION: Dr. Burk has requested a consultation for financial aid counselor and coordination of goals and options of care. HISTORY OF PRESENT ILLNESS: This is a pleasant 81-year-old male, who is known to our service as we have consulted him during his previous acute hospitalization on 12/03/2016 where he suffered a stroke. He does have left- sided hemiparesis and struggles with dysphagia and has had a PEG tube inserted in the past. He has had a total of three PEG tubes placed as he has pulled each one of them out. He did go to the acute skilled area from his hospitalization on 12/09/2016 to 12/17/2016 for rehabilitation needs. He was readmitted to the inpatient hospital on 12/17/2016 with aspiration pneumonia. Since that time, he has developed large clots of blood in his stool and pulled out his PEG tube again. Surgery is following him. No plans for colonoscopy at this time. He does have external hemorrhoids and his last hemoglobin was 9.0 today. Medical team has been counseling family concerning replacing the PEG tube for the fourth time and Dr. Burk has requested that we meet with family again to discuss goals and options of care in light of progressive debility and difficulty with nutritional status. Current functional status reflects a palliative performance score of around 20%. He is in bed, needing total care. He does have right-sided paralysis. He is not taking any oral intake and has pulled out his feeding tube for the third time. He is drowsy. Prior to his stroke, his functional status was around 90%. He was living independently in his home. He ambulated without a walker. He just himself performed all of his ADLs. PAST MEDICAL HISTORY: Hypertension, aspiration pneumonia, stroke, and dysphagia, status post PEG tube. PAST SURGICAL HISTORY: PEG tube placement x3. ADVANCED DIRECTIVE AND CODE STATUS: There is no advanced directive completed that I am aware of. In terms of medical decision making, the patient's daughter, Bettye Fried, his next of kin at #[phone]. His son also named Scott Barnes, his phone #[phone], who is involved in his care as well. SOCIAL HISTORY: Prior to admission, he has lived in his home alone. He has either been an inpatient or NRIRU and no placement has occurred as of yet. He is retired. He is Christian. He does not use alcohol or illicit drugs. He does have a history of chewing tobacco. He does have adult children involved ADMIT: 12/17/2016 RM/LOC: 504 [facility] MR#: [id number] [address] [address] [place] [address] Consultation SEX: M AGE: 81 : 1935 in his care. FAMILY HISTORY: Reviewed and noncontributory. CURRENT MEDICATIONS: Include Mycostatin, Santyl, Colace, Levaquin, Maalox, Phenergan, Zofran, Rocephin, Tinactin, DuoNeb, Tylenol, Nitrostat, and Lopressor. ALLERGIES: PENICILLINS. REVIEW OF SYSTEMS: A 10-point review of system was conducted. However, due to the patient's cognition, I was unable to obtain. PHYSICAL EXAMINATION: CONSTITUTIONAL: Weight is 188 pounds. Please see medical record for height and BMI. GENERAL STATUS: This is a pleasant elderly male, in no acute distress. Drowsy, however, does open eyes to verbal stimuli. He does have aphasia. He appears calm and comfortable. VITAL SIGNS AND CODE STATUS: He is a do not resuscitate/do not intubate status with temperature of 97.6, heart rate 87, respiratory rate 16, and blood pressure 123/71. He is on 1 L of supplemental oxygen per nasal cannula and oxygenating at 90%. HEENT: Head is normocephalic and atraumatic. He is not wearing glasses. Pupils are 3 mm, PERRLA. Hearing is unable to be assessed. Oral mucosa is dry. Dentition is worn. Anicteric sclerae. Conjunctivae are pale. NECK: No lymphadenopathy. Trachea is midline. Supple. No JVD. RESPIRATORY: Respirations are regular without distress. Lung sounds are coarse bilaterally. I do not auscultate any wheezes or rhonchi or rubs. CARDIOVASCULAR: Rate and rhythm are regular. I do not auscultate any rubs, murmurs, clicks, or gallops. GASTROINTESTINAL: Abdomen is obese, nontender, and nondistended. Positive bowel sounds in all 4 quadrants. EXTREMITIES: Upper and lower extremities are free of cyanosis or clubbing. Trace amount of edema. INTEGUMENTARY: Skin temperature is warm. Skin is intact. MUSCULOSKELETAL: Free of joint deformities. Does have left-sided hemiparesis. NEUROLOGICAL: He is drowsy, but does open his eyes to verbal stimuli. He does not follow my commands at this time. PSYCHIATRIC: Unable to be assessed. DIAGNOSTIC DATA: Laboratory work reveals a sodium of 140, potassium 4.4, chloride 105, glucose 107, creatinine 0.8, and albumin 1.7. WBCs 13.8, hemoglobin 9.0, hematocrit 28.2, and platelets 444. Please see EMR for Radiology reports, these have been reviewed. IMPRESSION AND PLAN: 1. Physical debility. ADMIT: 12/17/2016 RM/LOC: [address] [place] [address] MR#: [id number] [address] [address] VICTOR MANUEL BARNES [address] [place] [address] Consultation SEX: M AGE: 81 : 1935 2. Dysphagia with history of PEG tube placement and Mr. Barnes's self removal x3. 3. malnutrition, severe with an albumin of 1.7. 4. Palliative care. 5. History of stroke with left hemiparesis. 6. Aphasia. 7. Aspiration pneumonia. 8. Lower gastrointestinal bleeding. 9. Anemia. 10.Do not resuscitate/do not intubate status. I did have a long talk with daughter/decision maker, Bettye at the bedside. She does remember me from the last consultation that occurred in the intensive care unit. We discussed goals and options of care at length in light of her father's stroke and progressive debility with dysphagia. She states "he is just has not got any better and he has pulled out his PEG tube three times." Her number one goal at this time is to optimize her father's health and discuss with the surgeons options for feeding. She states "I just don't think dad wants to live this way." We discussed all options of care including PEG tube,oral intake, penitentiary facility care, comfort care/hospice care, long-term care. She verbalizes understanding. We also spent much time discussing if oral intake was chosen by family while on hospice care that his aspiration risks continue and aspiration is likely to occur and when this would occur, the focus will be on comfort and dignity and allowing a natural . She explained that her and her brother are leaning towards more of a comfort plan of care, however, she would like to speak with the surgeons and her brother deepti and I have encouraged this and I have encouraged them to consider all options. We will follow up on 12/26/2016. We did review code status options full code versus do not resuscitate/do not intubate status and Bettye does confirm the do not resuscitate/do not intubate status which is in place. Much support and counseling given during this consultation. I do feel that Bettye is experiencing anticipatory greiving and much financial aid counselor support given at this difficult time. Mr. Barnes was seen in collaboration with Dr. Antonio Potts, who agrees above assessment, discussion, and plan. I like to thank Dr. Burk for the invitation to participate in Mr. Barnes's hospital course. Total consultation time was from 1248 to 1329 on 12/25/2016 by the Palliative Medicine STATIONARY EQUIPMENT MECHANIC. Greater than 50% of this time was spent at the bedside in counseling and coordination of care. Valeria Slaughter, STATIONARY EQUIPMENT MECHANIC / Antonio Potts MD / lane JOB #: [id number] CC: Fede Burk, Attending Physician Fede Burk, Family Physician
--- NOTE | 2017-01-08 16:13 | CO ---
ADMIT: 12/17/2016 RM/LOC: 504 [facility] MR#: [id number] [address] [address] MARIN [facility] R [address] [place] [address] Consultation SEX: M AGE: 81 : 1935 Corrected: 12/24/20161930 ajf DATE OF CONSULTATION: 12/24/2016 ATTENDING PHYSICIAN: Fede Burk CONSULTING PHYSICIAN: Stephen Newell MD REASON FOR CONSULTATION: Bright red blood per rectum. HISTORY OF PRESENT ILLNESS: Marin is a very pleasant 81-year-old male, who unfortunately is a stroke victim with left-sided hemiparesis who has been admitted to the hospital for apparent aspiration pneumonia. We have actually seen Marin not too long ago for long-term nutrition and PEG tube placement x2. Reason why he has a second PEG tube placed is he pulled his 1st one out. The patient has been recovering from his pneumonia while in the hospital until apparently he started developing large clots in his stool today. Staff has not noticed any diarrhea or constipation. Because of the patient's previous stroke, he is difficult to obtain a history on. He is currently on 40 mg of Lovenox and 300 mg aspirin per rectum. When interviewing the patient, as soon as I got to his room, I was notified by nursing staff that the patient has pulled out his most recent PEG tube just seconds ago. PAST MEDICAL HISTORY: Significant for CVA, hypertension, and aspiration pneumonia. PAST SURGICAL HISTORY: PEG tube placement on 12/06/2016, and subsequent PEG tube placement approximately 1 week later. ALLERGIES: PENICILLIN. MEDICATIONS: Well documented in chart. FAMILY HISTORY: Noncontributory. SOCIAL HISTORY: No social history noted for tobacco, alcohol, or illicit drug use. REVIEW OF SYSTEMS: Unobtainable due to patient's condition. PHYSICAL EXAMINATION: GENERAL: The patient appears to be confused and slightly distressed. HEENT: Head is normocephalic and atraumatic. EOMS are intact. Conjunctivae free of icterus, erythema, or pallor. Pinnae, free of deformities. Nose, midline. No tracheal deviation. NECK: Supple. SKIN: Negative for jaundice, clubbing, edema, pallor, or cyanosis. LUNGS: Clear to auscultation bilaterally. Normal respiratory effort. HEART: Regular rate and rhythm. Distal pulses intact. ADMIT: 12/17/2016 RM/LOC: 504 [facility] MR#: [id number] [address] [address] [place] [address] Consultation SEX: M AGE: 81 : 1935 ABDOMEN: Soft, nondistended, and nontender. Former G-tube site with some erythema and minimal serous drainage. NEURO: Cranial nerves II through X are grossly intact. LABORATORY DATA: Hemoglobin 9.5. ASSESSMENT: 1. Anemia, lower gastrointestinal bleed. 2. Pulled the PEG tube. 3. Previous cerebrovascular accident. PLAN: As of right now, I am holding his aspirin and Lovenox. Given that this is the 3rd PEG tube that he has pulled, Dr. Newell will talk to family in regards of further wishes for the patient. There has been a hemoglobin ordered right now, so we will wait to see what those results show. Hopefully this can resolve with conservative measures, but we will likely need to repeat an EGD with PEG tube placement and possible colonoscopy down the road to further assess lower GI bleed. Thank you for the consultation on this patient. EDDY Roa / Stephen Newell MD / lane JOB #: [id number] CC: Fede Burk, Attending Physician Fede Burk, Family Physician Corrected: 12/24/2016 1931 [email or web address]
== END 2016-12-27 16:00 | disposition hospice, home (50) | DRG 177 ==
LOC: 5MS 10:15 → 4PCU 10:15 → 3ICU 10:15 → 4PCU 12-21 21:40 → 5MS 12-23 00:01
DX: J69.0 Pneumonitis due to inhalation of food and vomit (principal); J96.01 Acute respiratory failure with hypoxia; E43 Unspecified severe protein-calorie malnutrition; Z51.5 Encounter for palliative care; L89.210 Pressure ulcer of right hip, unstageable; I69.354 Hemiplegia and hemiparesis following cerebral infarction affecting left non-dominant side; K92.1 Melena; Z93.1 Gastrostomy status; I69.320 Aphasia following cerebral infarction; I65.29 Occlusion and stenosis of unspecified carotid artery; I69.391 Dysphagia following cerebral infarction; D64.9 Anemia, unspecified; K64.4 Residual hemorrhoidal skin tags; R13.10 Dysphagia, unspecified; I10 Essential (primary) hypertension; Z87.891 Personal history of nicotine dependence; Z66 Do not resuscitate